=== PATIENT | male | born 1945 | race American Indian/Alaskan Native ===

== ENCOUNTER 2016-05-26 17:50 | Inpatient (IN) | payer MEDICARE ==
[2016-05-26 19:55] LABS: Basophils % (Auto) 0.3 % (0.0-1.8); Eosinophils % (Auto) 1.4 % (0.0-4.3); Hematocrit 26.7 % (35.5-45.6); Hemoglobin 8.3 gm/dl (11.8-15.2); Mean Corpuscular HGB Conc 31 % (32-34); Mean Corpuscular Volume 81 fl (84-94); Platelet Count 341 K/mm3 (140-440); Red Blood Count 3.28 M/mm3 (3.65-5.03); Red Cell Distribution Width 18.4 % (13.2-15.2); White Blood Count 9.7 K/mm3 (4.5-11.0)
[2016-05-26 19:58] LABS: Mean Corpuscular Hemoglobin 25 pg (28-32)
[2016-05-26 20:05] LABS: INR 1.59 (0.87-1.13)
[2016-05-26 20:11] LABS: Anion Gap 13 mmol/L; Blood Urea Nitrogen 12 mg/dL (9-20); Calcium 7.9 mg/dL (8.4-10.2); Carbon Dioxide 39 mmol/L (22-30); Chloride 88.4 mmol/L (98-107); Glucose 101 mg/dL (75-100); Potassium 3.1 mmol/L (3.6-5.0); Sodium 137 mmol/L (137-145)
[2016-05-26 20:12] LABS: Creatine Kinase MB 1.7 ng/mL (0.0-4.0)
[2016-05-26] MEDS ORDERED: K-DUR PO ONE ×2 (20:24→22:44)
[2016-05-26 20:41] LABS: Albumin 2.9 g/dL (3.9-5); Albumin/Globulin Ratio 0.8 %; Bilirubin,Direct 0.3 mg/dL (0-0.2); Bilirubin,Indirect 0.3 mg/dL; Bilirubin,Total 0.6 mg/dL (0.1-1.2); Total Protein 6.6 g/dL (6.3-8.2)
--- NOTE | 2016-05-26 20:44 | Emergency Department Report ---
ED Shortness of Breath HPI - General Chief Complaint: Dyspnea/Respdistress Stated Complaint: CHF Time Seen by Provider: 05/26/16 19:29 Source: EMS, old records reviewed Mode of arrival: Ambulatory Limitations: Physical Limitation - History of Present Illness Initial Comments: 70-year-old male with a past medical history CHF, obesity, diabetes, hypertension, and defibrillator placement presents to the hospital with complaints of increased fluid retention. Patient complains of swelling to abdomen and lower extremities. No significant shortness of breath reported. Sat noted to be 92% on room air. Patient denies any pain. Patient states he has a history of chronic hypokalemia and takes six 20 mEq tablets of potassium twice a day. He states that his [facility] adjusted his dose since they thought it was excessive. Therefore, he was taken less than the six 20 mEq tablets twice a day and his potassium level dropped. Due to his low potassium Lasix was discontinued for the last and an attempt to increase his potassium level. During this time patient has gradually been retaining fluid since Lasix was discontinued. - Related Data Home Medications Medication Instructions Recorded Confirmed Last Taken metFORMIN [Glucophage] 500 mg PO BID 04/08/16 04/08/16 04/10/16 Previous Rx's Medication Instructions Recorded Last Taken Type Apixaban [Eliquis] 5 mg PO Q12HR tablet 09/22/15 04/11/16 Rx Carvedilol [Coreg] 3.125 mg PO BID #60 tablet 09/22/15 04/11/16 Rx Famotidine [Pepcid] 20 mg PO BID #60 tablet 09/22/15 04/11/16 Rx Furosemide [Lasix] 20 mg PO QDAY #30 tablet 09/22/15 04/10/16 Rx Glimepiride [Amaryl] 4 mg PO QAM #30 tablet 09/22/15 04/10/16 Rx Lisinopril [Zestril TAB] 2.5 mg PO QDAY #30 tab 09/22/15 04/11/16 Rx Potassium Chloride [K-Dur] 20 meq PO BID #60 tab 09/22/15 04/11/16 Rx predniSONE [Deltasone] 5 mg PO QDAY #5 tablet 09/22/15 04/11/16 Rx traMADol [Ultram 50 MG tab] 50 mg PO Q6HR PRN #20 tablet 09/22/15 Unknown Rx Allergies Allergy/AdvReac Type Severity Reaction Status Date / Time No Known Allergies Allergy Unverified 04/08/16 14:23 ED Review of Systems ROS: Stated complaint: CHF Other details as noted in HPI Comment: All other systems reviewed and negative Other: Constitutional: No fevers chills Eyes: No eye pain visual changes ENT: No ear pain or throat pain Neck: Denies pain Respiratory: Denies cough wheezing shortness of breath GI: Denies abdominal pain, nausea, vomiting, diarrhea : Denies dysuria Musculoskeletal: As per HPI Skin: Denies rash, lesions, erythema Neurologic: Denies headache, numbness, weakness Psychiatric: Denies suicidal ideation, hallucinations ED Past Medical Hx - Past Medical History Previous Medical History?: Yes Hx Hypertension: Yes Hx Congestive Heart Failure: Yes Hx Diabetes: Yes Hx Arthritis: Yes - Surgical History Past Surgical History?: Yes Hx Internal Defibrillator: Yes - Social History Smoking Status: Never Smoker Substance Use Type: None - Medications Home Medications: Home Medications Medication Instructions Recorded Confirmed Last Taken Type Apixaban [Eliquis] 5 mg PO Q12HR tablet 09/22/15 04/08/16 04/11/16 Rx Carvedilol [Coreg] 3.125 mg PO BID #60 tablet 09/22/15 04/08/16 04/11/16 Rx Famotidine [Pepcid] 20 mg PO BID #60 tablet 09/22/15 04/08/16 04/11/16 Rx Furosemide [Lasix] 20 mg PO QDAY #30 tablet 09/22/15 04/08/16 04/10/16 Rx Glimepiride [Amaryl] 4 mg PO QAM #30 tablet 09/22/15 04/08/16 04/10/16 Rx Lisinopril [Zestril TAB] 2.5 mg PO QDAY #30 tab 09/22/15 04/08/16 04/11/16 Rx Potassium Chloride [K-Dur] 20 meq PO BID #60 tab 09/22/15 04/08/16 04/11/16 Rx predniSONE [Deltasone] 5 mg PO QDAY #5 tablet 09/22/15 04/08/16 04/11/16 Rx traMADol [Ultram 50 MG tab] 50 mg PO Q6HR PRN #20 tablet 09/22/15 04/08/16 Unknown Rx metFORMIN [Glucophage] 500 mg PO BID 04/08/16 04/08/16 04/10/16 History ED Physical Exam - General Limitations: Physical Limitation - Other Other exam information: General: No limitations, patient is alert in no acute distress Head exam: Atraumatic, normocephalic Eyes exam: Normal appearance, pupils equal reactive to light, extraocular movements intact ENT: Moist mucous membrane, normal oropharynx Neck exam: Normal inspection, full range of motion, no meningismus nontender Respiratory exam: Clear to auscultation bilateral, no wheezes, rales, crackles Cardiovascular: Normal rate and rhythm, normal heart sounds Abdomen: Soft, distended abdomen, nontender, normal bowel sounds, no rebound or guarding Extremity: Full range of motion, bilateral lower extremity pitting edema noted Back: Normal Inspection, full range of motion, no tenderness Neurologic: Alert, oriented x3, cranial nerves intact, no motor or sensory deficit Psychiatric: normal affect, normal mood Skin: Warm, dry, intact ED Course Vital Signs 05/26/16 05/26/16 05/26/16 18:52 19:00 19:20 Temperature 98.5 F Pulse Rate 100 H 152 H 65 Respiratory 22 23 Rate Blood Pressure 97/54 91/57 Blood Pressure 104/48 [Right] O2 Sat by Pulse 92 100 Oximetry 05/26/16 19:30 Temperature Pulse Rate 59 L Respiratory 21 Rate Blood Pressure 98/61 Blood Pressure [Right] O2 Sat by Pulse 98 Oximetry - Reevaluation(s) Reevaluation #1: 05/26/16 20:44 By mouth potassium ordered. Lasix not given at this time ED Medical Decision Making - Lab Data Result diagrams: 05/26/16 19:33 05/26/16 19:33 Lab Results 05/26/16 05/26/16 05/26/16 Range/Units 19:33 19:33 19:33 WBC 9.7 (4.5-11.0) K/mm3 RBC 3.28 L (3.65-5.03) M/mm3 Hgb 8.3 L (11.8-15.2) gm/dl Hct 26.7 L (35.5-45.6) % MCV 81 L (84-94) fl MCH 25 L (28-32) pg MCHC 31 L (32-34) % RDW 18.4 H (13.2-15.2) % Plt Count 341 (140-440) K/mm3 Lymph % (Auto) 19.1 (13.4-35.0) % Howell % (Auto) 11.5 H (0.0-7.3) % Eos % (Auto) 1.4 (0.0-4.3) % Baso % (Auto) 0.3 (0.0-1.8) % Lymph # 1.9 (1.2-5.4) K/mm3 Howell # 1.1 H (0.0-0.8) K/mm3 Eos # 0.1 (0.0-0.4) K/mm3 Baso # 0.0 (0.0-0.1) K/mm3 Seg Neutrophils % 67.7 (40.0-70.0) % Seg Neutrophils # 6.6 (1.8-7.7) K/mm3 PT 18.9 H (12.2-14.9) Sec. INR 1.59 H (0.87-1.13) APTT 38.0 H (24.2-36.6) Sec. Sodium 137 (137-145) mmol/L Potassium 3.1 L (3.6-5.0) mmol/L Chloride 88.4 L (98-107) mmol/L Carbon Dioxide 39 H (22-30) mmol/L Anion Gap 13 mmol/L BUN 12 (9-20) mg/dL Creatinine 0.6 L (0.8-1.5) mg/dL Estimated GFR > 60 ml/min BUN/Creatinine Ratio 20.00 % Glucose 101 H (75-100) mg/dL Calcium 7.9 L (8.4-10.2) mg/dL Magnesium (1.7-2.3) mg/dL Total Bilirubin (0.1-1.2) mg/dL Direct Bilirubin (0-0.2) mg/dL Indirect Bilirubin mg/dL AST (5-40) units/L ALT (7-56) units/L Alkaline Phosphatase (35-129) units/L Total Creatine Kinase (55-170) units/L CK-MB (CK-2) (0.0-4.0) ng/mL CK-MB (CK-2) Rel Index (0-4) Troponin T < 0.010 (0.00-0.029) ng/mL NT-Pro-B Natriuret Pep (0-900) pg/mL Total Protein (6.3-8.2) g/dL Albumin (3.9-5) g/dL Albumin/Globulin Ratio % 05/26/16 05/26/16 05/26/16 Range/Units 19:33 19:33 19:43 WBC (4.5-11.0) K/mm3 RBC (3.65-5.03) M/mm3 Hgb (11.8-15.2) gm/dl Hct (35.5-45.6) % MCV (84-94) fl MCH (28-32) pg MCHC (32-34) % RDW (13.2-15.2) % Plt Count (140-440) K/mm3 Lymph % (Auto) (13.4-35.0) % Howell % (Auto) (0.0-7.3) % Eos % (Auto) (0.0-4.3) % Baso % (Auto) (0.0-1.8) % Lymph # (1.2-5.4) K/mm3 Howell # (0.0-0.8) K/mm3 Eos # (0.0-0.4) K/mm3 Baso # (0.0-0.1) K/mm3 Seg Neutrophils % (40.0-70.0) % Seg Neutrophils # (1.8-7.7) K/mm3 PT (12.2-14.9) Sec. INR (0.87-1.13) APTT (24.2-36.6) Sec. Sodium (137-145) mmol/L Potassium (3.6-5.0) mmol/L Chloride (98-107) mmol/L Carbon Dioxide (22-30) mmol/L Anion Gap mmol/L BUN (9-20) mg/dL Creatinine (0.8-1.5) mg/dL Estimated GFR ml/min BUN/Creatinine Ratio % Glucose (75-100) mg/dL Calcium (8.4-10.2) mg/dL Magnesium 2.2 (1.7-2.3) mg/dL Total Bilirubin 0.6 (0.1-1.2) mg/dL Direct Bilirubin 0.3 H (0-0.2) mg/dL Indirect Bilirubin 0.3 mg/dL AST 18 (5-40) units/L ALT 102 H (7-56) units/L Alkaline Phosphatase 97 (35-129) units/L Total Creatine Kinase 22 L (55-170) units/L CK-MB (CK-2) 1.7 (0.0-4.0) ng/mL CK-MB (CK-2) Rel Index 7.7 H (0-4) Troponin T (0.00-0.029) ng/mL NT-Pro-B Natriuret Pep 1976 H (0-900) pg/mL Total Protein 6.6 (6.3-8.2) g/dL Albumin 2.9 L (3.9-5) g/dL Albumin/Globulin Ratio 0.8 % - EKG Data -: EKG Interpreted by Me (electronic ventricular pacemaker, rate 62) - EKG Data When compared to previous EKG there are: no significant change - Radiology Data Radiology results: image reviewed (chest x-ray: Pacemaker, cardiomegaly, no acute finding) - Medical Decision Making By mouth potassium ordered. Magnesium is normal. I'm hesitant to give Lasix at this time given borderline blood pressure and hypokalemia. Patient has retention of fluid however he does not have any significant findings of pulmonary edema. Will be admitted to the hospital for further management of persistent hypokalemia and volume overload - Differential Diagnosis CHF, ascites, renal sufficiency, medication noncompliance Critical Care Time: No Critical care attestation.: If time is entered above; I have spent that time in minutes in the direct care of this critically ill patient, excluding procedure time. ED Disposition Clinical Impression: Hypokalemia, Anemia, Hypoalbuminemia, Diabetes mellitus, type 2, Presence of cardiac defibrillator CHF exacerbation Qualifiers: Congestive heart failure type: unspecified congestive heart failure type Qualified Code(s): I50.9 - Heart failure, unspecified Disposition: OP ADMITTED IP TO THIS HOSP Is pt being admited?: Yes Condition: Stable Time of Disposition: 20:47 (Dr Benavides/hosp)
--- NOTE | 2016-05-26 22:21 | History and Physical Report ---
History of Present Illness Date of examination: 05/26/16 Date of admission: 05/26/16 Chief complaint: LE edema History of present illness: 70-year-old male with a past medical history CHF, obesity, diabetes, hypertension, cardiomyopathy, A. fib and defibrillator placement presents to the hospital with complaints of increased fluid retention. Patient complains of swelling from abdomen and lower extremities. No significant shortness of breath reported. Patient's saturation noted to be 92% on room air. Patient denies any chest pain. Patient reports that [facility] adjusted his dosage of potassium and subsequently discontinued his Lasix. Since the discontinuation of his Lasix, patient has had increased edema. No nausea or vomiting. No headache or visual disturbances. No abdominal pain. No fever or chills. No cough or cold-like symptoms. Past History Past Medical History: arthritis, diabetes, heart failure, hypertension Past Surgical History: Other (defibrillator placement) Social history: no significant social history Medications and Allergies Allergies Allergy/AdvReac Type Severity Reaction Status Date / Time No Known Allergies Allergy Unverified 04/08/16 14:23 Home Medications Medication Instructions Recorded Confirmed Last Taken Type Apixaban [Eliquis] 5 mg PO Q12HR tablet 09/22/15 04/08/16 04/11/16 Rx Carvedilol [Coreg] 3.125 mg PO BID #60 tablet 09/22/15 04/08/16 04/11/16 Rx Famotidine [Pepcid] 20 mg PO BID #60 tablet 09/22/15 04/08/16 04/11/16 Rx Furosemide [Lasix] 20 mg PO QDAY #30 tablet 09/22/15 04/08/16 04/10/16 Rx Glimepiride [Amaryl] 4 mg PO QAM #30 tablet 09/22/15 04/08/16 04/10/16 Rx Lisinopril [Zestril TAB] 2.5 mg PO QDAY #30 tab 09/22/15 04/08/16 04/11/16 Rx Potassium Chloride [K-Dur] 20 meq PO BID #60 tab 09/22/15 04/08/16 04/11/16 Rx predniSONE [Deltasone] 5 mg PO QDAY #5 tablet 05/24/16 12/09/16 12/12/16 Rx traMADol [Ultram 50 MG tab] 50 mg PO Q6HR PRN #20 tablet 09/22/15 04/08/16 Unknown Rx metFORMIN [Glucophage] 500 mg PO BID 04/08/16 04/08/16 04/10/16 History Review of Systems All systems: negative Exam - Constitutional Vitals: Temp Pulse Resp BP Pulse Ox 98.5 F 59 L 21 98/61 98 05/26/16 19:00 05/26/16 19:30 05/26/16 19:30 05/26/16 19:30 05/26/16 19:30 General appearance: Present: no acute distress, well-nourished - EENT Eyes: Present: PERRL ENT: hearing intact, clear oral mucosa - Neck Neck: Present: supple, normal ROM - Respiratory Respiratory effort: normal Respiratory: bilateral: CTA - Cardiovascular Heart Sounds: Present: S1 & S2. Absent: rub, click - Extremities Extremities: pulses symmetrical Extremity abnormal: edema (4+) Peripheral Pulses: within normal limits - Abdominal General gastrointestinal: Present: soft, non-tender, non-distended, normal bowel sounds Male genitourinary: Present: normal - Integumentary Integumentary: Present: clear, warm, dry - Musculoskeletal Musculoskeletal: gait normal, strength equal bilaterally - Psychiatric Psychiatric: appropriate mood/affect, intact judgment & insight - Neurologic Neurologic: CNII-XII intact, moves all extremities Results - Labs CBC & Chem 7: 05/26/16 19:33 05/26/16 19:33 Labs: Laboratory Last Values WBC 9.7 K/mm3 (4.5-11.0) 05/26/16 19:33 RBC 3.28 M/mm3 (3.65-5.03) L 05/26/16 19:33 Hgb 8.3 gm/dl (11.8-15.2) L 05/26/16 19:33 Hct 26.7 % (35.5-45.6) L 05/26/16 19:33 MCV 81 fl (84-94) L 05/26/16 19:33 MCH 25 pg (28-32) L 05/26/16 19:33 MCHC 31 % (32-34) L 05/26/16 19:33 RDW 18.4 % (13.2-15.2) H 05/26/16 19:33 Plt Count 341 K/mm3 (140-440) 05/26/16 19:33 Lymph % (Auto) 19.1 % (13.4-35.0) 05/26/16 19:33 Clark % (Auto) 11.5 % (0.0-7.3) H 05/26/16 19:33 Eos % (Auto) 1.4 % (0.0-4.3) 05/26/16 19:33 Baso % (Auto) 0.3 % (0.0-1.8) 05/26/16 19:33 Lymph # 1.9 K/mm3 (1.2-5.4) 05/26/16 19:33 Clark # 1.1 K/mm3 (0.0-0.8) H 05/26/16 19:33 Eos # 0.1 K/mm3 (0.0-0.4) 05/26/16 19:33 Baso # 0.0 K/mm3 (0.0-0.1) 05/26/16 19:33 Seg Neutrophils % 67.7 % (40.0-70.0) 05/26/16 19:33 Seg Neutrophils # 6.6 K/mm3 (1.8-7.7) 05/26/16 19:33 PT 18.9 Sec. (12.2-14.9) H 05/26/16 19:33 INR 1.59 (0.87-1.13) H 05/26/16 19:33 APTT 38.0 Sec. (24.2-36.6) H 05/26/16 19:33 Sodium 137 mmol/L (137-145) 05/26/16 19:33 Potassium 3.1 mmol/L (3.6-5.0) L 05/26/16 19:33 Chloride 88.4 mmol/L (98-107) L 05/26/16 19:33 Carbon Dioxide 39 mmol/L (22-30) H 05/26/16 19:33 Anion Gap 13 mmol/L 05/26/16 19:33 BUN 12 mg/dL (9-20) 05/26/16 19:33 Creatinine 0.6 mg/dL (0.8-1.5) L 05/26/16 19:33 Estimated GFR > 60 ml/min 05/26/16 19:33 BUN/Creatinine Ratio 20.00 % 05/26/16 19:33 Glucose 101 mg/dL (75-100) H 05/26/16 19:33 Calcium 7.9 mg/dL (8.4-10.2) L 05/26/16 19:33 Magnesium 2.2 mg/dL (1.7-2.3) 05/26/16 19:33 Total Bilirubin 0.6 mg/dL (0.1-1.2) 05/26/16 19:33 Direct Bilirubin 0.3 mg/dL (0-0.2) H 05/26/16 19:33 Indirect Bilirubin 0.3 mg/dL 05/26/16 19:33 AST 18 units/L (5-40) 05/26/16 19:33 ALT 102 units/L (7-56) H 05/26/16 19:33 Alkaline Phosphatase 97 units/L (35-129) 05/26/16 19:33 Total Creatine Kinase 22 units/L (55-170) L 05/26/16 19:43 CK-MB (CK-2) 1.7 ng/mL (0.0-4.0) 05/26/16 19:43 CK-MB (CK-2) Rel Index 7.7 (0-4) H 05/26/16 19:43 Troponin T < 0.010 ng/mL (0.00-0.029) 05/26/16 19:33 NT-Pro-B Natriuret Pep 1976 pg/mL (0-900) H 05/26/16 19:43 Total Protein 6.6 g/dL (6.3-8.2) 05/26/16 19:33 Albumin 2.9 g/dL (3.9-5) L 05/26/16 19:33 Albumin/Globulin Ratio 0.8 % 05/26/16 19:33 Assessment and Plan Assessment and plan: 1. Mild acute CHF exacerbation. Patient with a mildly elevated BNP and chest x -ray with very mild pulmonary vascular congestion findings. Patient will be placed on the CHF pathway. We will obtain echocardiogram for further evaluation of systolic versus diastolic involvement. Patient will be resumed on Lasix. 2. Hypokalemia. Repeat potassium. 3. Diabetes mellitus type 2. Accu-Cheks sliding scale regular insulin. 4. Hypertension. Resume antihypertensive medications. 5. Paroxysmal atrial fibrillation. Continue eliquis. 6. History of cardiomyopathy. Follow-up echocardiogram. Continue Coreg and lisinopril 7. DVT prophylaxis. On eliquis
[2016-05-26] MEDS ORDERED: TYLENOL PO PRN (22:30)
[2016-05-26] MEDS ORDERED: D50W (25GM) IV PRN (22:30)
[2016-05-26] MEDS ORDERED: DULCOLAX PR PRN (22:30)
[2016-05-26] MEDS ORDERED: ZOFRAN IV PRN (22:30)
[2016-05-26] MEDS ORDERED: MILK OF MAGNESIA PO PRN (22:30)
--- NOTE | 2016-05-26 22:47 | Admit Criteria Form ---
Admission Criteria Documentation: HEART FAILURE Clinical Indications for Admission to Inpatient Care (Place 'X' for any and all applicable criteria): Admission is indicated by ANY ONE of the following(1)(2)(3)(4): [X ]I. Severe electrolyte abnormalities requiring inpatient care(9) [ ]II. Hemodynamic instability [ ]III. Anasarca [ ]IV. Acute cardiac ischemia causing or associated with failure (Also use Angina or Myocardial Infarction as appropriate) [ ]V. Cardiac arrhythmias of immediate concern [ ]. Precipitating cause for acute decompensation (eg, pneumonia, pulmonary embolism) requires inpatient care [ ]VII. Pulmonary edema that is very severe (eg, mechanical ventilation needed, imminent or likely, need for 100% oxygen to keep oxygen saturation above 90%) [ ]VIII. Inpatient admission required rather than observation care (Also use Heart Failure: Observation Care as appropriate) because of ANY ONE of the following: [ ]a) Pulmonary edema that is severe or worsening as indicated by ALL of the following: [ ]i) New need for oxygen therapy to keep oxygen saturation above 90% (or increased FiO2 need from baseline) [ ]ii) Has not improved sufficiently with emergency department or observation care IV diuretics or other heart failure treatments[C] [ ]b) Cognitive impairment that is severe or persistent [ ]c) Increased creatinine (new on laboratory test) with reduction of more than 50% in estimated glomerular filtration rate from baseline. [ ]d) Acute renal insufficiency (progressively (ongoing) rising creatinine (known from past laboratory test) with reduction of more than 25% in estimated glomerular filtration rate from baseline) [ ]e) Acute peripheral ischemia (eg, pulseless, cool, mottled, or cyanotic extremity) [ ]f) Acute renal failure [ ]g) Supplemental O2 or respiratory treatment for >24 hr that are performable only in acute inpatient setting [ ]h) Pulmonary artery catheter monitoring [ ]i) Other condition, treatment or monitoring requiring inpatient admission [ ]IX. Contraindications and/or Inappropriate clinical situations for Observational Care in patients with Heart Failure, when ANY ONE of the following is required: [ ]a) Patient with High risk of cardiac embolism (e.g, patients with previous cardiac embolism, LVEF < 40%, age >75 and patients with prosthetic valve) 18 [ ]b) Patient with Moderate risk including DM patient, CAD and patient aged 65-75 [ ]c) Patient with any change in cardiac biomarker especially troponin should be managed as high risk in an inpatient setting 19 [ ]d) Physician judgement irrespective of ECG and other diagnostic findings 20 [ ]e) Patients with hyponatremia have high risk for mortality and require more extensive care and length of stay 21 [ ]f) Need for large volume diuresis 21 [ ]g) Presence of renal insufficiency or hypotension limiting speed of diuresis 21 [ ]h) Acute cardiac Ischemia in the elderly 21 [ ]i) Patients with a 30 day risk of mortality based on a multidimensional prognostic index (MPI) [J,]21 [ ]X. General contraindications and/or Inappropriate clinical situations for Observational Care in patients with Heart Failure, when ANY ONE of the following is required: [ ]a) Prediction of prolongation of LOS based on ANY ONE of the following may be considered as a contraindication for observational care 2, 3, 4, 5, 6, 7, 8 , 9, 10, 11 [ ]i) Age > 65 yrs. [ ]ii) Patient arriving by ambulance [ ]iii) Patient with high acuity [ ]iv) Patient requiring vital sign monitoring [ ]v) Patient on IV medication [ ]b) Systolic blood pressures 180mmHg 3,12 [ ]c) Patient with altered mental status including delirium and other alteration of consciousness, (3) [ ]d) Patient whose discharge disposition will be to a alf home or rehabilitation home should not be managed in Emergency Department Observation Unit. CMS rule requires 3 days hospital stay before such placement.3,13 [ ]e) Patient with failure to thrive due to broad array of etiologies 3,16,17 [ ]f) Inability to ambulate 3,14 Extended stay beyond goal length of stay may be needed for(1)(3)(21)(25): [ ]a) Cardiac ischemia, confirmed or suspected as precipitant [ ]b) Cardiogenic shock or refractory pulmonary edema [ ]c) Acute kidney injury or renal failure [ ]d) Respiratory failure (eg, need for noninvasive or invasive mechanical ventilation) (23) [ ]e) Concomitant pneumonia or significant electrolyte abnormality (eg, severe hyponatremia) [ ]f) Newly diagnosed (new onset) atrial fibrillation [ ]g) Stage IV chronic kidney disease (estimated glomerular filtration rate of less than 30 mL/min/1.73m2 (0.50 mL/sec/1.73m2), and not previously on chronic dialysis The original [facility] content created by [facility] has been revised. The portions of the content which have been revised are identified through the use of italic text or in bold, and [facility] has neither reviewed nor approved the modified material. All other unmodified content is copyright [facility]. Please see references footnoted in the original [facility] edition 2016 Admission Criteria Met: Yes
[2016-05-27 06:04] LABS: Basophils % (Auto) 0.7 % (0.0-1.8); Eosinophils % (Auto) 1.1 % (0.0-4.3); Hematocrit 24.1 % (35.5-45.6); Hemoglobin 7.5 gm/dl (11.8-15.2); Mean Corpuscular HGB Conc 31 % (32-34); Mean Corpuscular Volume 81 fl (84-94); Platelet Count 327 K/mm3 (140-440); Red Blood Count 2.97 M/mm3 (3.65-5.03); Red Cell Distribution Width 18.2 % (13.2-15.2); White Blood Count 12.1 K/mm3 (4.5-11.0)
[2016-05-27 06:11] LABS: BUN/Creatinine Ratio 15.71; Blood Urea Nitrogen 11 mg/dL (9-20); Calcium 7.8 mg/dL (8.4-10.2); Glucose 131 mg/dL (75-100); Potassium 3.3 mmol/L (3.6-5.0); Sodium 139 mmol/L (137-145)
[2016-05-27 06:20] LABS: Anion Gap 9 mmol/L; Carbon Dioxide 42 mmol/L (22-30)
[2016-05-27 06:28] LABS: Mean Corpuscular Hemoglobin 25 pg (28-32)
--- NOTE | 2016-05-27 08:08 | Progress Note ---
Assessment and Plan Assessment and plan: Acute CHF, new onset, unidentified whether systolic or diastolic - Echo is pending - Lasix DM2 - Accu check - SSI Hypokalemia - Repleted - will monitor Prophylaxis - Lovenox Disposition Plan: Will continue inpatient care History Interval history: patient has some SOB. Hospitalist Physical - Physical exam Narrative exam: Not in cardiopulmonary distress. The patient appeared well nourished and normally developed. Vital signs as documented. Head exam is unremarkable. No scleral icterus . Neck is without jugular venous distension, thyromegaly, or carotid bruits. Lungs are clear to auscultation. Cardiac exam reveals regular rate and Rhythm. First and second heart sounds normal. No murmurs, rubs or gallops. Abdominal exam reveals normal bowel sounds, no masses, no organomegaly and no aortic enlargement. Extremities are nonedematous and both femoral and pedal pulses are normal. MECHANICAL SERVICE SPECIALIST: Alert and oriented 3. No focal weakness. - Constitutional Vitals: Temp Pulse Resp BP Pulse Ox 98.6 F 96 H 22 113/66 97 05/27/16 04:00 05/27/16 04:00 05/27/16 04:00 05/27/16 04:00 05/27/16 04:00 General appearance: Present: no acute distress, well-nourished Results - Labs CBC & Chem 7: 05/27/16 05:08 05/27/16 05:08 Labs: Laboratory Last Values WBC 12.1 K/mm3 (4.5-11.0) H 05/27/16 05:08 RBC 2.97 M/mm3 (3.65-5.03) L 05/27/16 05:08 Hgb 7.5 gm/dl (11.8-15.2) L 05/27/16 05:08 Hct 24.1 % (35.5-45.6) L 05/27/16 05:08 MCV 81 fl (84-94) L 05/27/16 05:08 MCH 25 pg (28-32) L 05/27/16 05:08 MCHC 31 % (32-34) L 05/27/16 05:08 RDW 18.2 % (13.2-15.2) H 05/27/16 05:08 Plt Count 327 K/mm3 (140-440) 05/27/16 05:08 Lymph % (Auto) 11.1 % (13.4-35.0) L 05/27/16 05:08 [place] % (Auto) 11.4 % (0.0-7.3) H 05/27/16 05:08 Eos % (Auto) 1.1 % (0.0-4.3) 05/27/16 05:08 Baso % (Auto) 0.7 % (0.0-1.8) 05/27/16 05:08 Lymph # 1.3 K/mm3 (1.2-5.4) 05/27/16 05:08 [place] # 1.4 K/mm3 (0.0-0.8) H 05/27/16 05:08 Eos # 0.1 K/mm3 (0.0-0.4) 05/27/16 05:08 Baso # 0.1 K/mm3 (0.0-0.1) 05/27/16 05:08 Seg Neutrophils % 75.7 % (40.0-70.0) H 05/27/16 05:08 Seg Neutrophils # 9.2 K/mm3 (1.8-7.7) H 05/27/16 05:08 PT 18.9 Sec. (12.2-14.9) H 05/26/16 19:33 INR 1.59 (0.87-1.13) H 05/26/16 19:33 APTT 38.0 Sec. (24.2-36.6) H 05/26/16 19:33 Sodium 139 mmol/L (137-145) 05/27/16 05:08 Potassium 3.3 mmol/L (3.6-5.0) L 05/27/16 05:08 Chloride 91.0 mmol/L (98-107) L 05/27/16 05:08 Carbon Dioxide 42 mmol/L (22-30) H* 05/27/16 05:08 Anion Gap 9 mmol/L 05/27/16 05:08 BUN 11 mg/dL (9-20) 05/27/16 05:08 Creatinine 0.7 mg/dL (0.8-1.5) L 05/27/16 05:08 Estimated GFR > 60 ml/min 05/27/16 05:08 BUN/Creatinine Ratio 15.71 % 05/27/16 05:08 Glucose 131 mg/dL (75-100) H 05/27/16 05:08 POC Glucose 140 (70-105) H 05/27/16 06:24 Calcium 7.8 mg/dL (8.4-10.2) L 05/27/16 05:08 Magnesium 2.2 mg/dL (1.7-2.3) 05/26/16 19:33 Total Bilirubin 0.6 mg/dL (0.1-1.2) 05/26/16 19:33 Direct Bilirubin 0.3 mg/dL (0-0.2) H 05/26/16 19:33 Indirect Bilirubin 0.3 mg/dL 05/26/16 19:33 AST 18 units/L (5-40) 05/26/16 19:33 ALT 102 units/L (7-56) H 05/26/16 19:33 Alkaline Phosphatase 97 units/L (35-129) 05/26/16 19:33 Total Creatine Kinase 22 units/L (55-170) L 05/26/16 19:43 CK-MB (CK-2) 1.7 ng/mL (0.0-4.0) 05/26/16 19:43 CK-MB (CK-2) Rel Index 7.7 (0-4) H 05/26/16 19:43 Troponin T < 0.010 ng/mL (0.00-0.029) 05/26/16 19:33 NT-Pro-B Natriuret Pep 1976 pg/mL (0-900) H 05/26/16 19:43 Total Protein 6.6 g/dL (6.3-8.2) 05/26/16 19:33 Albumin 2.9 g/dL (3.9-5) L 05/26/16 19:33 Albumin/Globulin Ratio 0.8 % 05/26/16 19:33
[2016-05-27] MEDS ORDERED: K-DUR PO ONE (08:30)
--- NOTE | 2016-05-27 09:15 | XRay Report ---
PORTABLE CHEST: INDICATION: Shortness of breath. COMPARISON: None similar. FINDINGS: Portable, frontal chest radiograph demonstrates [id number] cardiomegaly, slight aortic knob calcifications and slightly elevated right hemidiaphragms. Lung markings somewhat crowded centrally. No focal infiltrate, pleural effusions or CHF. Left AICD with normal ventricular lead, though possible atrial lead appears somewhat positioned high along the distal SVC. EKG leads. No acute osseous abnormality. CONCLUSION: No acute chest process, though cardiomegaly and left AICD with possible atrial lead positioned high, as detailed above, for which cardiology correlation may be obtained, as appropriate. Thank you for the opportunity to participate in this patient's care.
[2016-05-27] MEDS ORDERED: LOVENOX SUB-Q SCH (10:00)
[2016-05-27] MEDS: AMARYL PO SCH (10:25)
[2016-05-27] MEDS: COREG PO SCH ×2 (10:25→22:43)
[2016-05-27] MEDS: PEPCID PO SCH ×2 (11:53→22:44)
[2016-05-27] MEDS: LASIX IV SCH (11:53)
[2016-05-27] MEDS: ELIQUIS PO SCH ×2 (11:54→22:44)
[2016-05-27] MEDS: K-DUR PO SCH ×2 (11:54→22:44)
[2016-05-27] MEDS: ZESTRIL PO SCH (11:54)
--- NOTE | 2016-05-27 11:57 | Consultation ---
Addendum entered and electronically signed by MARTITA WILD MD 16:58: Patient seen and examined Patient states that he has gained ~ 30 lbs in weight. He was taken off his water pill recently due to refractory hypokalemia and since then he has been retaining fluids progressively. His echo is showing evidence of LV systolic dysfunction, LVEF 40-45% with elevated left sided filling pressures consistent with acute on chronic diastolic heart failure Patient is also noted anemia with a dropping Hct. Although he denies bleeding, monitoring his blood counts closely is warranted Recommendations: Continue diuresis Daily weights Accurate Is and Os Monitor Hb/hct Original Note: History of Present Illness Consult date: 05/27/16 Consult reason: congestive heart failure History of present illness: Mr Awad is a 70yr old male known to [facility]. He has a history of chronic atrial fibrillation, cardiomyopathy, hypertension and obesity. There is an AICD in place. He is on Eliquis for stoke prophylaxis. Most recent cardiac workup was done 4 months ago. He had a persantine stress thallium that showed no ischemia. Left ventricular ejection fraction 35-40% on echocardiogram. He presented to this hospital with complaints of lower extremity edema with edema extending upwards to his abdomen. Patient denies shortness of breath and shortness of breath. He denies AICD discharge. Chest x-ray reports no acute process. ECG shows a ventricular paced rhythm with underlying atrial fibrillation. Cardiology consultation requested for CHF exacerbation. Past History Past Medical History: arthritis, diabetes, heart failure, hypertension Past Surgical History: Other (defibrillator placement) Social history: no significant social history Medications and Allergies Allergies Allergy/AdvReac Type Severity Reaction Status Date / Time No Known Allergies Allergy Unverified 04/08/16 14:23 Home Medications Medication Instructions Recorded Confirmed Last Taken Type Apixaban [Eliquis] 5 mg PO Q12HR tablet 09/22/15 04/08/16 04/11/16 Rx Carvedilol [Coreg] 3.125 mg PO BID #60 tablet 09/22/15 04/08/16 04/11/16 Rx Famotidine [Pepcid] 20 mg PO BID #60 tablet 09/22/15 04/08/16 04/11/16 Rx Furosemide [Lasix] 20 mg PO QDAY #30 tablet 09/22/15 04/08/16 04/10/16 Rx Glimepiride [Amaryl] 4 mg PO QAM #30 tablet 09/22/15 04/08/16 04/10/16 Rx Lisinopril [Zestril TAB] 2.5 mg PO QDAY #30 tab 09/22/15 04/08/16 04/11/16 Rx Potassium Chloride [K-Dur] 20 meq PO BID #60 tab 09/22/15 04/08/16 04/11/16 Rx predniSONE [Deltasone] 5 mg PO QDAY #5 tablet 09/22/15 04/08/16 04/11/16 Rx traMADol [Ultram 50 MG tab] 50 mg PO Q6HR PRN #20 tablet 09/22/15 04/08/16 Unknown Rx metFORMIN [Glucophage] 500 mg PO BID 04/08/16 04/08/16 04/10/16 History Active Meds: Active Medications Acetaminophen (Tylenol) 650 mg PO Q4H PRN PRN Reason: Pain MILD(1-3)/Fever >100.5/ESCOBEDO Apixaban (Eliquis) 5 mg PO Q12HR [facility] Last Admin: 05/27/16 11:54 Dose: 5 mg Bisacodyl (Dulcolax) 10 mg MI QDAY PRN PRN Reason: Constipation unrelieved by MOM Carvedilol (Coreg) 3.125 mg PO BID [facility] Last Admin: 05/27/16 10:25 Dose: Not Given Dextrose (D50w (25gm)) 50 ml IV PRN PRN PRN Reason: Hypoglycemia Famotidine (Pepcid) 20 mg PO BID [facility] Last Admin: 05/27/16 11:53 Dose: 20 mg Furosemide (Lasix) 40 mg IV QDAY [facility] Last Admin: 05/27/16 11:53 Dose: 40 mg Glimepiride (Amaryl) 4 mg PO QAMDIAB [facility] Last Admin: 05/27/16 10:25 Dose: Not Given Insulin Human Regular (Novolin R) 0 units SUB-Q ACHS [facility] PRN Reason: Protocol Last Admin: 05/27/16 10:21 Dose: Not Given Lisinopril (Zestril) 2.5 mg PO QDAY [facility] Last Admin: 05/27/16 11:54 Dose: Not Given Magnesium Hydroxide (Milk Of Magnesia) 30 ml PO Q4H PRN PRN Reason: Constipation Ondansetron HCl (Zofran) 4 mg IV Q8H PRN PRN Reason: N/V unrelieved by Jasperlan Last Admin: 05/27/16 02:14 Dose: 4 mg Potassium Chloride (K-Dur) 20 meq PO BID [facility] Last Admin: 05/27/16 11:54 Dose: 20 meq Physical Examination Vital Signs Pulse 100 H 05/26/16 18:52 General appearance: no acute distress HEENT: Positive: PERRL Neck: Positive: trachea midline Cardiac: Positive: Other (paced) Lungs: Positive: Decreased Breath Sounds Neuro: Positive: Grossly Intact Extremities: Present: edema Results 05/27/16 05:08 05/27/16 05:08 CBC 05/27/16 Range/Units 05:08 WBC 12.1 H (4.5-11.0) K/mm3 RBC 2.97 L (3.65-5.03) M/mm3 Hgb 7.5 L (11.8-15.2) gm/dl Hct 24.1 L (35.5-45.6) % Plt Count 327 (140-440) K/mm3 Lymph # 1.3 (1.2-5.4) K/mm3 [place] # 1.4 H (0.0-0.8) K/mm3 Eos # 0.1 (0.0-0.4) K/mm3 Baso # 0.1 (0.0-0.1) K/mm3 Comprehensive Metabolic Panel 05/27/16 Range/Units 05:08 Sodium 139 (137-145) mmol/L Potassium 3.3 L (3.6-5.0) mmol/L Chloride 91.0 L (98-107) mmol/L Carbon Dioxide 42 H* (22-30) mmol/L BUN 11 (9-20) mg/dL Creatinine 0.7 L (0.8-1.5) mg/dL Glucose 131 H (75-100) mg/dL Calcium 7.8 L (8.4-10.2) mg/dL EKG interpretations - Telemetry EKG Rhythm: Paced Assessment and Plan CHF exacerbation, systolic EF 35-40% on echo 12/2015 Anemia -HCT trending downwards Hypokalemia Cardiomyopathy no ischemia on MPI 12/2015 Obesity Hypertension
--- NOTE | 2016-05-27 12:38 | Echocardiography Report ---
Transthoracic Echocardiogram Indication: Eval LV Function Conclusions *The left ventricular chamber size is normal. *Global left ventricular systolic function is mildly decreased. *The estimated ejection fraction is 40-45%. *The left ventricular diastolic filling pattern is restrictive. *The left ventricular diastolic filling pattern is consistent with both elevated mean left atrial pressure and elevated left ventricular end-diastolic pressure. *The left atrium is severely dilated. *The right ventricle is moderately dilated. *A pacemaker wire is visualized in the right ventricle. *The right atrial cavity size is severely dilated. *There is severe mitral regurgitation. *There is moderate tricuspid regurgitation. *The right ventricular systolic pressure is calculated at 55 mmHg. *There is evidence of moderate pulmonary hypertension. *There is a small pericardial effusion. *The inferior vena cava is dilated. Findings Left Ventricle: The left ventricular chamber size is normal. Mild global hypokinesis of the left ventricle is observed. Global left ventricular systolic function is mildly decreased. The estimated ejection fraction is 40-45%. Abnormal left ventricular diastolic function is observed. The left ventricular diastolic filling pattern is restrictive. The left ventricular diastolic filling pattern is consistent with both elevated mean left atrial pressure and elevated left ventricular end-diastolic pressure. Left Atrium: The left atrium is severely dilated. Right Ventricle: The right ventricle is moderately dilated. A pacemaker wire is visualized in the right ventricle. Right Atrium: The right atrial cavity size is severely dilated. The interatrial septum bowed toward the left. A pacemaker wire is visualized in the right atrium. Aortic Valve: The aortic valve leaflets are mildly thickened. Mild aortic leaflet calcification is visualized. There is no evidence of aortic regurgitation. There is no evidence of aortic stenosis. Mitral Valve: The mitral valve leaflets are mildly thickened. There is severe mitral regurgitation. There is no evidence of mitral stenosis. Tricuspid Valve: The tricuspid valve leaflets are normal. There is moderate tricuspid regurgitation. The right ventricular systolic pressure is calculated at 55 mmHg. There is evidence of moderate pulmonary hypertension. There is no tricuspid stenosis. Pulmonic Valve: The pulmonic valve appears normal. There is no evidence of pulmonic regurgitation. There is no pulmonic stenosis. Pericardium: There is a small pericardial effusion. The pericardial effusion is seen adjacent to the left ventricle. Aorta: There is no dilatation of the ascending aorta. There is no dilatation of the descending thoracic aorta. There is no dilatation of the aortic root. Venous: The inferior vena cava is dilated. There is no change in the dimension of the inferior vena cava with respiration consistent with markedly increased right atrial pressure. Contrast: Definity was used to optimize study. Measurements Chambers MM Name Value Normal Range Ao root diameter (MM) 3 cm (2 - 3.7) LA dimension (AP) MM 5 cm (1.9 - 4) LA:Ao ratio (MM) 1.67 ratio - AV cusp separation (MM) 1.6 cm (1.5 - 2.6) Chambers 2D Name Value Normal Range RVIDd (AP) 2D 4.65 cm (0.9 - 2.6) IVSd (2D) 1.05 cm (0.6 - 1.1) LVPWd (2D) 1.05 cm (0.6 - 1.1) IVS:LVPW ratio (2D) 1 ratio - LVIDd (2D) 5.54 cm (3.7 - 5.6) LVIDs (2D) 4.6 cm (2 - 3.8) LV FS (Teichholz) (2D) 17 % - LV FS (cube) (2D) 17 % - EF Teichholz (2D) 35.1 % - LA dimension (AP) 2D 5 cm (1.9 - 4) Volumes/Mass Name Value Normal Range LA ESV SP 4CH (MOD) 130 ml - LA ESV SP 2CH (MOD) 93 ml - LV EDV SP 4CH (MOD) 94 ml - LV ESV SP 4CH (MOD) 56 ml - EF SP 4CH (MOD) 40 % - LV EDV SP 2CH (MOD) 95 ml - LV ESV SP 2CH (MOD) 52 ml - EF SP 2CH (MOD) 45 % - Diastolic/Systolic Function Name Value Normal Range MV E-wave Vmax 1.03 m/sec - MV deceleration time 130 msec - LV septal e' Vmax 0.14 m/sec - LV lateral e' Vmax 0.13 m/sec - LV E:e' septal ratio 7.4 ratio - LV E:e' lateral ratio 7.7 ratio - Aortic Valve Name Value Normal Range AV VTI 25.7 cm - AV mean gradient 5 mmHg - LVOT diameter 2 cm - LVOT VTI 19.4 cm - LVOT mean gradient 3 mmHg - SV LVOT 61 ml - ANU (continuity VTI) 2.37 cm2 - Mitral Valve Name Value Normal Range MV PHT 48 msec - MR Vmax 4.71 m/sec - MR VTI 137 cm - MVA (PHT) 4.58 cm2 - Tricuspid Valve Name Value Normal Range TR Vmax 3.17 m/sec - TR peak gradient 40 mmHg - RAP 15 mmHg - RVSP 55 mmHg - Pulmonic Valve/Qp:Qs Name Value Normal Range PV Vmax 0.82 m/sec - PV peak gradient 3 mmHg - PV acceleration time 106 msec -
--- NOTE | 2016-05-27 15:00 | Progress Note ---
Assessment and Plan Assessment and plan: Acute on chronic systolic CHF exacerbation - Status post AICD - Echo is pending - Lasix - Continue her medications - Cardiology consult Paroxysmal atrial fibrillation - Continue eliquis DM2 - Accu check - SSI Hypokalemia - Repleted - will monitor Anemia - Chronic - Anemia work up Prophylaxis - Lovenox Disposition Plan: continue inpatient care History Interval history: SOB is getting better, abdominal swelling is getting better Hospitalist Physical - Physical exam Narrative exam: Not in cardiopulmonary distress. The patient appeared well nourished and normally developed. Vital signs as documented. Head exam is unremarkable. No scleral icterus . Neck is without jugular venous distension, thyromegaly, or carotid bruits. Lungs are clear to auscultation. Cardiac exam reveals regular rate and Rhythm. First and second heart sounds normal. No murmurs, rubs or gallops. Abdominal exam reveals normal bowel sounds, no masses, no organomegaly and no aortic enlargement. Extremities are nonedematous and both femoral and pedal pulses are normal. CLINICAL ACADEMIC ALLERGIST: Alert and oriented 3. No focal weakness. - Constitutional Vitals: Temp Pulse Resp BP Pulse Ox 98.2 F 72 20 102/60 100 05/27/16 08:00 05/27/16 08:00 05/27/16 08:00 05/27/16 08:00 05/27/16 08:00 General appearance: Present: no acute distress Results - Labs CBC & Chem 7: 05/27/16 05:08 05/27/16 05:08 Labs: Laboratory Last Values WBC 12.1 K/mm3 (4.5-11.0) H 05/27/16 05:08 RBC 2.97 M/mm3 (3.65-5.03) L 05/27/16 05:08 Hgb 7.5 gm/dl (11.8-15.2) L 05/27/16 05:08 Hct 24.1 % (35.5-45.6) L 05/27/16 05:08 MCV 81 fl (84-94) L 05/27/16 05:08 MCH 25 pg (28-32) L 05/27/16 05:08 MCHC 31 % (32-34) L 05/27/16 05:08 RDW 18.2 % (13.2-15.2) H 05/27/16 05:08 Plt Count 327 K/mm3 (140-440) 05/27/16 05:08 Lymph % (Auto) 11.1 % (13.4-35.0) L 05/27/16 05:08 [place] % (Auto) 11.4 % (0.0-7.3) H 05/27/16 05:08 Eos % (Auto) 1.1 % (0.0-4.3) 05/27/16 05:08 Baso % (Auto) 0.7 % (0.0-1.8) 05/27/16 05:08 Lymph # 1.3 K/mm3 (1.2-5.4) 05/27/16 05:08 [place] # 1.4 K/mm3 (0.0-0.8) H 05/27/16 05:08 Eos # 0.1 K/mm3 (0.0-0.4) 05/27/16 05:08 Baso # 0.1 K/mm3 (0.0-0.1) 05/27/16 05:08 Seg Neutrophils % 75.7 % (40.0-70.0) H 05/27/16 05:08 Seg Neutrophils # 9.2 K/mm3 (1.8-7.7) H 05/27/16 05:08 PT 18.9 Sec. (12.2-14.9) H 05/26/16 19:33 INR 1.59 (0.87-1.13) H 05/26/16 19:33 APTT 38.0 Sec. (24.2-36.6) H 05/26/16 19:33 Sodium 139 mmol/L (137-145) 05/27/16 05:08 Potassium 3.3 mmol/L (3.6-5.0) L 05/27/16 05:08 Chloride 91.0 mmol/L (98-107) L 05/27/16 05:08 Carbon Dioxide 42 mmol/L (22-30) H* 05/27/16 05:08 Anion Gap 9 mmol/L 05/27/16 05:08 BUN 11 mg/dL (9-20) 05/27/16 05:08 Creatinine 0.7 mg/dL (0.8-1.5) L 05/27/16 05:08 Estimated GFR > 60 ml/min 05/27/16 05:08 BUN/Creatinine Ratio 15.71 % 05/27/16 05:08 Glucose 131 mg/dL (75-100) H 05/27/16 05:08 POC Glucose 181 (70-105) H 05/27/16 11:49 Calcium 7.8 mg/dL (8.4-10.2) L 05/27/16 05:08 Magnesium 2.2 mg/dL (1.7-2.3) 05/26/16 19:33 Total Bilirubin 0.6 mg/dL (0.1-1.2) 05/26/16 19:33 Direct Bilirubin 0.3 mg/dL (0-0.2) H 05/26/16 19:33 Indirect Bilirubin 0.3 mg/dL 05/26/16 19:33 AST 18 units/L (5-40) 05/26/16 19:33 ALT 102 units/L (7-56) H 05/26/16 19:33 Alkaline Phosphatase 97 units/L (35-129) 05/26/16 19:33 Total Creatine Kinase 22 units/L (55-170) L 05/26/16 19:43 CK-MB (CK-2) 1.7 ng/mL (0.0-4.0) 05/26/16 19:43 CK-MB (CK-2) Rel Index 7.7 (0-4) H 05/26/16 19:43 Troponin T < 0.010 ng/mL (0.00-0.029) 05/26/16 19:33 NT-Pro-B Natriuret Pep 1976 pg/mL (0-900) H 05/26/16 19:43 Total Protein 6.6 g/dL (6.3-8.2) 05/26/16 19:33 Albumin 2.9 g/dL (3.9-5) L 05/26/16 19:33 Albumin/Globulin Ratio 0.8 % 05/26/16 19:33
[2016-05-27 15:47] LABS: Iron 14 ug/dL (49-181)
[2016-05-27 15:48] LABS: Total Iron Binding Capacity 250 mcg/dL (250-450)
[2016-05-28 05:50] LABS: Hematocrit 22.4 % (35.5-45.6); Mean Corpuscular HGB Conc 31 % (32-34); Mean Corpuscular Volume 82 fl (84-94); Platelet Count 333 K/mm3 (140-440); Red Blood Count 2.74 M/mm3 (3.65-5.03); Red Cell Distribution Width 18.2 % (13.2-15.2); White Blood Count 9.6 K/mm3 (4.5-11.0)
[2016-05-28 06:07] LABS: Mean Corpuscular Hemoglobin 26 pg (28-32)
[2016-05-28] MEDS: ELIQUIS PO SCH (09:12)
[2016-05-28] MEDS: ZESTRIL PO SCH (09:12)
[2016-05-28] MEDS: K-DUR PO SCH (09:14)
[2016-05-28] MEDS: LASIX IV SCH (09:14)
[2016-05-28] MEDS: AMARYL PO SCH (09:14)
[2016-05-28] MEDS: PEPCID PO SCH (09:14)
[2016-05-28] MEDS: COREG PO SCH (09:14)
[2016-05-28] MEDS ORDERED: K-DUR PO ONE ×2 (10:52→13:37)
--- NOTE | 2016-05-28 10:53 | Progress Note ---
Assessment and Plan CHF exacerbation, systolic EF 35-40% on echo 12/2015 Anemia -HCT trending downwards Hypokalemia Cardiomyopathy no ischemia on MPI 12/2015 Obesity Hypertension Recommend: Continue current therapy including diuretics and potassium supplementation. Subjective Date of service: 05/28/16 Interval history: Pt feels better. Dyspnea has improved. Objective Vital Signs Temp Pulse Pulse Pulse Resp BP BP 05/28/16 07:30 98 F 80 15 05/27/16 23:04 96.2 F L 102 H 20 102/58 05/27/16 22:43 64 116/56 05/27/16 22:00 64 16 05/27/16 16:00 98.2 F 72 18 106/58 BP Pulse Ox 05/28/16 07:30 102/56 100 05/27/16 23:04 92 05/27/16 22:43 05/27/16 22:00 05/27/16 16:00 - Physical Examination HEENT: Positive: PERRL Neck: Positive: trachea midline Cardiac: Positive: Reg Rate and Rhythm Lungs: Positive: clear to auscultation Neuro: Positive: Grossly Intact Extremities: Present: edema - Labs and Meds CBC 05/28/16 Range/Units 04:32 WBC 9.6 (4.5-11.0) K/mm3 RBC 2.74 L (3.65-5.03) M/mm3 Hgb 7.0 L (11.8-15.2) gm/dl Hct 22.4 L (35.5-45.6) % Plt Count 333 (140-440) K/mm3
--- NOTE | 2016-05-28 10:59 | Discharge Summary ---
Providers - Providers Date of Admission: 05/26/16 22:30 Date of discharge: 05/28/16 Attending physician: ALEXA TORRES MD Primary care physician: CHEMICAL PROCESS PROJECT ENGINEER Hospitalization Reason for admission: SOB and abdominal bloating Condition: Stable Hospital course: 70-year-old male with a past medical history CHF, obesity, diabetes, hypertension, cardiomyopathy, A. fib and defibrillator placement presented to the hospital with complaints of increased fluid retention. Patient complains of swelling from abdomen and lower extremities. No significant shortness of breath reported. Patient's saturation noted to be 92% on room air. Patient denies any chest pain. Patient reported that his current caretakers at the custodial adjusted his dosage of potassium and subsequently discontinued his Lasix. Since the discontinuation of his Lasix, patient has had increased edema. Patient was admitted to the floor. He was put on IV Lasix, the swelling went down the patient was stable by the time of discharge and patient is discharged back to custodial with po Lasix and potassium [facility] Time spent for discharge: 31 minutes - Discharge Diagnoses (1) Anemia Status: Acute (2) CHF exacerbation Status: Acute Qualifiers: Congestive heart failure type: systolic Qualified Code(s): I50.23 - Acute on chronic systolic (congestive) heart failure (3) Hypokalemia Status: Acute (4) Presence of cardiac defibrillator Status: Acute (5) Diabetes mellitus, type 2 Status: Chronic Core Measure Documentation - Palliative Care Palliative Care/ Comfort Measures: Not Applicable - Core Measures Any of the following diagnoses?: none Exam - Physical Exam Narrative exam: Not in cardiopulmonary distress. The patient appeared well nourished and normally developed. Vital signs as documented. Head exam is unremarkable. No scleral icterus . Neck is without jugular venous distension, thyromegaly, or carotid bruits. Lungs are clear to auscultation. Cardiac exam reveals regular rate and Rhythm. First and second heart sounds normal. No murmurs, rubs or gallops. Abdominal exam reveals obese abdomen. Extremities are nonedematous and both femoral and pedal pulses are normal. QUALITY CONTROL SPECIALIST: Alert and oriented 3. No focal weakness. - Constitutional Vitals: Temp Pulse Resp BP Pulse Ox 98 F 80 15 102/56 100 05/28/16 07:30 05/28/16 07:30 05/28/16 07:30 05/28/16 07:30 05/28/16 07:30 Plan Activity: no restrictions Weight Bearing Status: Full Weight Bearing Diet: low cholesterol, low salt, diabetic
[2016-05-28 20:06] VITALS: BP 117/65
== END 2016-05-28 20:06 | DRG 293 ==
LOC: ED 17:50 → 3A 22:30
PROVIDERS: ADMIT Hospitalist; ATTEND Internal Medicine
DX: I11.0 Hypertensive heart disease with heart failure (principal); E87.6 Hypokalemia; E66.9 Obesity, unspecified; E11.9 Type 2 diabetes mellitus without complications; M19.90 Unspecified osteoarthritis, unspecified site; D64.9 Anemia, unspecified; E88.09 Other disorders of plasma-protein metabolism, not elsewhere classified; I42.9 Cardiomyopathy, unspecified; I48.0 Paroxysmal atrial fibrillation; I50.23 Acute on chronic systolic (congestive) heart failure; Z79.899 Other long term (current) drug therapy; Z68.36 Body mass index [BMI] 36.0-36.9, adult; Z95.810 Presence of automatic (implantable) cardiac defibrillator
CPT/HCPCS: 36415; 71010; 80048; 80074; 82550; 82553; 82607; 82728; 82747; 82962; 83550; 83735; 83880; 84484; 85025; 85027; 85610; 85730; 93005; 93010; 93306; 96374; J1815; J1940; J2405

== ENCOUNTER 2016-10-18 01:56 | Emergency (ER) | payer MEDICARE ==
--- NOTE | 2016-10-18 04:15 | XRay Report ---
FINAL REPORT PROCEDURE: XR SHOULDER 2 LT TECHNIQUE: RIGHT shoulder radiographs including AP views in internal and external rotation. CPT 63686 HISTORY: lt shoudler pain COMPARISON: No prior studies are available for comparison. FINDINGS: Fracture (s) and/or Dislocation(s): None . Joint space(s): There is no joint dislocation. There is mild degenerative arthrosis of the glenohumeral joint.. There is widening of the joint space which could be evidence of joint effusion. Soft tissues: Normal . Bone mineralization: Normal . Foreign bodies: None . IMPRESSION: There is no acute bony or soft tissue abnormality. There is degenerative arthrosis of the glenohumeral joint and possible joint effusion.
[2016-10-18] MEDS ORDERED: NORCO 5/325 PO ONE (04:28)
--- NOTE | 2016-10-18 05:59 | Emergency Department Report ---
ED Upper Extremity Inj HPI - General Chief Complaint: Extremity Injury, Upper Stated Complaint: POSSIBLE SHOULDER DISLOCATION Time Seen by Provider: 10/18/16 04:28 Source: patient, EMS Mode of arrival: Stretcher Limitations: Physical Limitation - History of Present Illness Initial Comments: 70-year-old male with a past medical history of arthritis, CHF, CVA with residual left-sided deficit, diabetes, hypertension, and AICD placement presents to the hospital with complaints of left shoulder pain. Patient resides at [facility] and while attempting to lift him he injured his left arm at approximately 3 PM. Patient complains of pain to left shoulder and left-sided neck since injury. Pain is constant, aching, rated 10/10 intensity worsening movement and palpation. Patient was sent to rule out left shoulder dislocation. Patient had limited use of his left arm and leg secondary to previous CVA. - Related Data Home Medications Medication Instructions Recorded Confirmed Last Taken Acetaminophen [Shake That Ache] 2 tab PO DAILY 04/18/16 07/30/16 04/17/16 Allopurinol 1 tab PO DAILY 04/18/16 07/30/16 04/17/16 09:00 Digoxin [Lanoxin] 1 tab PO DAILY 04/18/16 07/30/16 04/17/16 Docusate Sodium [Colace CAP] 1 cap PO BID 04/18/16 07/30/16 04/17/16 17:00 Febuxostat (Nf) [Uloric (Nf)] 1 tab PO DAILY 04/18/16 07/30/16 04/17/16 Ferrous Sulfate [Feosol 325 MG tab] 1 tab PO TID 04/18/16 07/30/16 04/17/16 Ilevro 0.3% 1 drop OS QHS 04/18/16 07/30/16 04/17/16 Insulin Glargine,Hum.rec.anlog 15 units SQ QHS 04/18/16 07/30/16 04/17/16 21:00 [Lantus Solostar] Lotemax 0.5% 1 drop OS QID 04/18/16 07/30/16 04/18/16 Magnesium Oxide [Magnesium] 1 cap PO DAILY 04/18/16 07/30/16 04/17/16 Previous Rx's Medication Instructions Recorded Last Taken Type Famotidine [Pepcid] 20 mg PO BID #60 tablet 05/24/16 12/12/16 Rx predniSONE [Deltasone] 5 mg PO QDAY #5 tablet 09/22/15 04/11/16 Rx traMADol [Ultram 50 MG tab] 50 mg PO Q6HR PRN #20 tablet 09/22/15 Unknown Rx ALBUTEROL NEB's [Proventil 0.083% 2.5 mg IH Q4HRT PRN #30 nebu 07/29/16 Unknown Rx NEBS] Carvedilol [Coreg] 3.125 mg PO BID #60 tablet 07/29/16 04/11/16 Rx Clopidogrel [Plavix] 75 mg PO QDAY #30 tablet 07/29/16 Unknown Rx HYDROcodone/APAP 5-325 [[place] 1 tab PO PRN PRN #30 tablet 07/29/16 Unknown Rx 5-325 mg TAB] Insulin Lispro [HumaLOG VIAL] 1 dose SQ AC PRN #1 vial 07/29/16 Unknown Rx HYDROcodone/APAP 5-325 [[place] 1 each PO Q6HR PRN #20 tablet 10/18/16 Unknown Rx 5/325] Allergies Allergy/AdvReac Type Severity Reaction Status Date / Time colchicine AdvReac Intermediate HALLUCINATI Verified 04/18/16 13:52 ONS. ED Review of Systems ROS: Stated complaint: POSSIBLE SHOULDER DISLOCATION Other details as noted in HPI Comment: All other systems reviewed and negative Other: Constitutional: No fevers chills Eyes: No eye pain visual changes ENT: No ear pain or throat pain Neck: Denies pain Respiratory: Denies cough wheezing shortness of breath Cardiovascular: Denies chest pain, palpitations, syncope GI: Denies abdominal pain, nausea, vomiting, diarrhea : Denies dysuria Musculoskeletal: As per HPI Skin: Denies rash, lesions, erythema Neurologic: Denies headache, numbness, weakness Psychiatric: Denies suicidal ideation, hallucinations ED Past Medical Hx - Past Medical History Previous Medical History?: Yes Hx Hypertension: Yes Hx CVA: Yes (left sided weakness) Hx Heart Attack/AMI: No Hx Congestive Heart Failure: Yes Hx Diabetes: Yes Hx Deep Vein Thrombosis: No Hx Arthritis: Yes Hx Kidney Stones: Yes (2015) Hx Asthma: No Hx COPD: No Hx HIV: No Additional medical history: Enlarged Heart - Surgical History Past Surgical History?: Yes Hx Coronary Stent: No Hx Internal Defibrillator: Yes (AICD) - Social History Smoking Status: Never Smoker Substance Use Type: None - Medications Home Medications: Home Medications Medication Instructions Recorded Confirmed Last Taken Type Famotidine [Pepcid] 20 mg PO BID #60 tablet 09/22/15 07/30/16 04/11/16 Rx predniSONE [Deltasone] 5 mg PO QDAY #5 tablet 09/22/15 07/30/16 04/11/16 Rx traMADol [Ultram 50 MG tab] 50 mg PO Q6HR PRN #20 tablet 09/22/15 07/30/16 Unknown Rx Acetaminophen [Shake That Ache] 2 tab PO DAILY 04/18/16 07/30/16 04/17/16 History Allopurinol 1 tab PO DAILY 04/18/16 07/30/16 04/17/16 09:00 History Digoxin [Lanoxin] 1 tab PO DAILY 04/18/16 07/30/16 04/17/16 History Docusate Sodium [Colace CAP] 1 cap PO BID 04/18/16 07/30/16 04/17/16 17:00 History Febuxostat (Nf) [Uloric (Nf)] 1 tab PO DAILY 04/18/16 07/30/16 04/17/16 History Ferrous Sulfate [Feosol 325 MG tab] 1 tab PO TID 04/18/16 07/30/16 04/17/16 History Ilevro 0.3% 1 drop OS QHS 04/18/16 07/30/16 04/17/16 History Insulin Glargine,Hum.rec.anlog 15 units SQ QHS 04/18/16 07/30/16 04/17/16 21:00 History [Lantus Solostar] Lotemax 0.5% 1 drop OS QID 04/18/16 07/30/16 04/18/16 History Magnesium Oxide [Magnesium] 1 cap PO DAILY 04/18/16 07/30/16 04/17/16 History ALBUTEROL NEB's [Proventil 0.083% 2.5 mg IH Q4HRT PRN #30 nebu 07/29/16 Unknown Rx NEBS] Carvedilol [Coreg] 3.125 mg PO BID #60 tablet 07/29/16 04/08/16 04/11/16 Rx Clopidogrel [Plavix] 75 mg PO QDAY #30 tablet 07/29/16 Unknown Rx HYDROcodone/APAP 5-325 [[place] 1 tab PO PRN PRN #30 tablet 07/29/16 Unknown Rx 5-325 mg TAB] Insulin Lispro [HumaLOG VIAL] 1 dose SQ AC PRN #1 vial 07/29/16 Unknown Rx HYDROcodone/APAP 5-325 [[place] 1 each PO Q6HR PRN #20 tablet 10/18/16 Unknown Rx 5/325] ED Physical Exam - General Limitations: Physical Limitation - Other Other exam information: General: No limitations, patient is alert in no acute distress Head exam: Atraumatic, normocephalic Eyes exam: Normal appearance ENT: Moist mucous membrane, normal oropharynx Neck exam: Normal inspection, pain to the left side of the neck Respiratory exam: Clear to auscultation bilateral, no wheezes, rales, crackles Cardiovascular: Normal rate and rhythm, normal heart sounds Abdomen: Soft, nondistended, and nontender, with normal bowel sounds, no rebound, or guarding Extremity: Tenderness to left shoulder area diffusely and pain with movement Back: Normal Inspection, full range of motion, no tenderness Neurologic: Alert, oriented x3, left arm and leg paralysis secondary previous CVA, no antigravity movement Psychiatric: normal affect, normal mood Skin: Warm, dry, intact ED Course Vital Signs 10/18/16 10/18/16 10/18/16 02:05 02:30 03:00 Temperature 98.4 F Pulse Rate 88 91 H Respiratory 19 19 16 Rate Blood Pressure 128/70 122/78 Blood Pressure 128/70 [Right] O2 Sat by Pulse 95 95 97 Oximetry 10/18/16 10/18/16 10/18/16 04:01 04:44 05:01 Temperature Pulse Rate 92 H 92 H Respiratory 18 17 9 L Rate Blood Pressure 116/80 116/80 Blood Pressure [Right] O2 Sat by Pulse 96 94 Oximetry ED Medical Decision Making - Radiology Data Radiology results: report reviewed (left shoulder x-ray: No acute injury. Degenerative arthrosis of the glenoid joint and possible joint effusion) - Medical Decision Making Patient treated with [place] and provided a sling. Patient has findings of arthritis and possible effusion. Orthopedic follow-up will be encouraged - Differential Diagnosis fracture, dislocation, arthritis Critical Care Time: No Critical care attestation.: If time is entered above; I have spent that time in minutes in the direct care of this critically ill patient, excluding procedure time. ED Disposition Clinical Impression: Osteoarthritis, Left shoulder pain, Hemiparesis affecting left side as late effect of stroke Disposition: OP ADMIT IP TO THIS HOSP Is pt being admited?: Yes Condition: Stable Instructions: Shoulder Sprain (ED), Osteoarthritis (ED) Additional Instructions: Your x-ray shows arthritis of the left shoulder and possible joint effusion. Follow-up with orthopedic surgery for further management. Take medications needed for pain. Return if symptoms worsen. Prescriptions: HYDROcodone/APAP 5-325 [[place] 5/325] 1 each PO Q6HR PRN #20 tablet PRN Reason: Pain Referrals: MALISSA BURKETT MD [Staff Physician] - 3-5 Days Time of Disposition: 06:28
[2016-10-18 08:50] VITALS: BP 120/90
== END 2016-10-18 08:46 | disposition admitted as inpatient to this hospital (09) ==
LOC: ED 01:56
DX: M19.012 Primary osteoarthritis, left shoulder (principal); I69.954 Hemiplegia and hemiparesis following unspecified cerebrovascular disease affecting left non-dominant side; I10 Essential (primary) hypertension; E11.9 Type 2 diabetes mellitus without complications
CPT/HCPCS: 99285